=== PATIENT | female | born 1970 | race Caucasian/White ===

== ENCOUNTER 2023-02-02 09:14 | Emergency (ER) | payer OTHER, SELFPAY ==
[2023-02-02] VITALS (9 sets, daily range): BP systolic 109–133; BP diastolic 63–79; PULSE 64–98; RESP 16–24; TEMP 36.3–36.7; O2SAT 91–100
--- NOTE | 2023-02-02 09:23 | ED.NAVMDI ---
HPI - Nausea/Vomiting/Diarrhea General Chief complaint: Nausea/Vomiting/Diarrhea Stated complaint: N/V/D Time Seen by Provider: 02/02/23 09:23 Source: patient, family and EMS Mode of arrival: EMS Limitations: no limitations History of Present Illness HPI Narrative: Patient is a very pleasant 52-year-old female with past medical history as noted in pmh who presents to the emergency department today via EMS for evaluation of nausea, vomiting, diarrhea that started around 1:00 a.m. the morning. Patient states that she has significant motion sickness/car sickness and she tried her prescribed medications. She states she had meclizine around 8 o'clock this morning and 8 mg of Zofran around 6. She states that this has happened to her in the past with traveling and she states that she has had a GI cocktail at an outside hospital that has seemed to help. She denies any fever, chills, chest pain, shortness and breath. denies abdominal pain. She states this is typically what happens when she has these episodes. She had anybody having similar symptoms in her family. Related Data Allergies Allergy/AdvReac Type Severity Reaction Status Date / Time codeine Allergy Unknown Verified 02/02/23 09:59 ketorolac [From Toradol] Allergy Vomiting Verified 02/02/23 09:59 morphine Allergy Vomiting Verified 02/02/23 09:59 Review of Systems Review of Systems: CONSTITUTIONAL: + chills/sweats. Denies fever. EYES: Denies visual changes, redness, or discharge. ENT: Denies rhinorrhea, congestion, sore throat, or otalgia. CARDIOVASCULAR: Denies chest pain, palpitations, or edema. RESPIRATORY: Denies cough or dyspnea. GASTROINTESTINAL: +nausea, vomiting, diarrhea. Denies abdominal pain. GENITOURINARY: Denies dysuria or hematuria. SKIN: Denies rash or itching. MUSCULOSKELETAL: Denies back pain, joint pain, or myalgia. NEUROLOGIC: Denies headache, numbness, or weakness. PSYCHIATRIC: Denies anxiety or depression. All systems reviewed & are unremarkable except as noted in HPI and below Exam Narrative: GENERAL: alert, resting on stretcher, acute distress noted with active dry heaving and mild hyperventilating. slightly diaphoretic. respirations are regular and non-labored, non-toxic. HEAD: Normocephalic, atraumatic. EYES: PERRLA and EOMI. ENT: Nares clear, no rhinorrhea or epistaxis. Mucous membranes moist. NECK: Supple. CHEST: Clear to auscultation. No respiratory distress. HEART: Regular rate and rhythm. No murmur heard. Normal peripheral pulses. ABDOMEN: Soft, nontender, nondistended, normal active bowel sounds. EXTREMITIES: Normal range of motion. No edema. SKIN: Warm, dry, no rash. NEURO: No focal deficits. Alert and oriented x3. CN II-XII grossly intact PSYCH: slightly anxious. Course Reevaluation(s) Reevaluation #1: patient resting with eyes closed, states she is feeling some better, she is able to rest, as long as she isn't moving a lot she is okay. made aware of her labs, urine that shows bacteria and we will treat this with antibiotics. her son is at bedside. no distress noted. Date: 02/02/23 Time: 11:27 Reevaluation #2: patient told RN the potassium is bothering her IV. she wants to stop it. will have patient take oral potassium, which she states she already does. will plan for dc after completion of abx and fluids. Date: 02/02/23 Time: 12:05 Vital Signs Vital signs: Vital Signs Pulse Rate 77 02/02/23 09:24 Blood Pressure 114/63 02/02/23 09:24 Temperature 98.1 F 02/02/23 11:31 Pulse Rate 64 02/02/23 11:31 Respiratory Rate 18 02/02/23 11:31 Blood Pressure 124/72 02/02/23 11:31 Pulse Oximetry 98 02/02/23 11:31 Oxygen Delivery Room Air 02/02/23 09:26 MDM - Nausea/Vomiting/Diarrhea MDM Narrative Medical decision making narrative: Patient presents for her nausea, vomiting, diarrhea with known motion/car sickness. This has happened in the past while traveling and she has tried her own medicat
[2023-02-02 09:35] LABS: Basophils Percent Auto 0.2 % (0.2-1.2); Eosinophils Percent Auto 0.2 % (0-4.4); Hematocrit 43.6 % (37.0-47.0); Hemoglobin 14.9 g/dL (12.0-15.0); Immature Granulocyte Absolute 0.05 K/mm3 (0.00-0.031); Immature Granulocyte Percent A 0.4 % (0-0.5); Lymphocytes Absolute Auto 1.22 K/mm3 (0.9-3.2); Lymphocytes Percent Auto 9.9 % (18.3-44.2); Mean Corpuscular HGB Conc 34.2 g/dl (32-36); Mean Corpuscular Hemoglobin 29.5 pg (26-34); Mean Corpuscular Volume 86.3 fl (80-100); Mean Platelet Volume 9.9 fl (7.4-10.4); Monocytes Absolute Auto 0.5 K/mm3 (0.1-0.6); Monocytes Percent Auto 4.3 % (2.6-8.5); Neutrophils Absolute Auto 10.5 K/mm3 (1.3-6.7); Platelet Count Result 309 k/mm3 (150-375); Red Blood Count 5.05 M/mm3 (4.2-5.4); Red Cell Distribution Width 13.3 % (11.5-14.5); White Blood Count 12.4 K/mm3 (4.5-10.0)
[2023-02-02 09:51] LABS: Albumin Level 4.3 g/dL (3.5-5.1); Alkaline Phosphatase 57 U/L (38-126); Anion Gap 15 mmol/L (8-16); Aspartate Amino Transferase 25 U/L (14-36); Blood Urea Nitrogen 15 mg/dL (7-17); Calcium 9.4 mg/dL (8.4-10.2); Carbon Dioxide 19 mmol/L (22-30); Chloride 103 mmol/L (98-107); Estimated CRCL calculation 91 ml/min; Estimated Glomerular Filt Rate > 60; Glucose 112 mg/dL (65-110); Lipase 48 U/L (23-300); Magnesium 1.9 mg/dL (1.6-2.3); Sodium 137 mmol/L (137-145)
[2023-02-02 09:53] LABS: Alanine Aminotransferase 31 U/L (6-35)
[2023-02-02] MEDS: METOCLOPRAMIDE HCL INJ 10 MG/2 ML VIAL IV PUSH (10:01)
[2023-02-02] MEDS: FAMOTIDINE 20 MG/2 ML VIAL IV PUSH (10:01)
[2023-02-02] MEDS: BELLADONNA ALK/PHENOB ELIX 10 ML, MAG HYDROX/ALUMINUM HYD/SIMETH 30 ML, LIDOCAINE HCL 2... PO (10:01)
[2023-02-02] MEDS: Please add drug allergy info to patient profile. XX (10:02)
[2023-02-02] MEDS: diphenhydrAMINE HCl INJ 50 MG/ML VIAL 25 MG IV PUSH (10:02)
[2023-02-02] MEDS: SODIUM CHLORIDE 0.9% IV 1,000 ML 999 ML IV CONT (10:04)
[2023-02-02 10:13] LABS: Appearance Urine Cloudy (Clear); Bacteria Urine 4+ /hpf; Bilirubin Urine Negative (Negative); Blood Urine Negative (Negative); Color Urine Dark Yellow (Yellow); Glucose Urine UA Negative (Negative); Ketones Urine 4+ mg/dL (Negative); Leukocyte Esterase Ur Trace LEU/UL (Negative); Need Manual Microscopic Reviewed; Nitrate Urine Negative (Negative); Protein Urine 1+ mg/dL (Negative); Specific Grav Ur 1.034 (1.001-1.035); Squamous Epithelial Cell Urine Few /hpf (Few); pH Urine 7.5 (5.0-9.0)
[2023-02-02 10:18] LABS: Add Urine Microscopic? YES
[2023-02-02] MEDS: KCL 20 MEQ/SW 100 ML 100 ML 50 MEQ IVPB (10:31)
[2023-02-02] MEDS: POTASSIUM CHLORIDE 20 MEQ ER TABLET PO (12:35)
== END 2023-02-02 12:45 | disposition home or self-care (01) ==
PROVIDERS: Emergency Medicine; Emergency Provider Nurse Practitioner
DX: T75.3XXA Motion sickness, initial encounter (principal); R11.2 Nausea with vomiting, unspecified; N30.01 Acute cystitis with hematuria; E87.6 Hypokalemia
CPT/HCPCS: 36415; 80053; 81001; 81025; 83690; 83735; 85025; 87077; 87086; 87088; 96365; 96366; 96367; 96375; 99284; A9270; J0696; J1200; J2765; J3480; J7030